=== PATIENT | male | born 1935 ===

== ENCOUNTER 2024-05-11 17:27 | Inpatient (IN) | payer MEDICARE, OTHER ==
[~2024-05-11] VITALS: Ht 165.1 cm; Wt 63.5 kg
[2024-05-11] MEDS ORDERED: DEXTROSE 50% 50 ML DISP.SYRIN ONE ×2 (17:48→23:01)
[2024-05-11 17:53] LABS: BASOPHILS % (AUTO) 0.2 % (0.0-2.0); DIFFERENTIAL COMMENT 0; EOSINOPHILS # (AUTO) 0.2 K/uL (0.0-0.7); HEMATOCRIT 44.6 % (36.7-47.1); HEMOGLOBIN 14.6 g/dL (12.5-16.3); LYMPHOCYTES # (AUTO) 0.6 K/uL (0.8-4.8); LYMPHOCYTES % (AUTO) 8.3 % (20.5-51.5); MEAN CORPUSCULAR HGB CONC 33 g/dL (32.5-36.3); MEAN CORPUSCULAR VOLUME 94.3 fL (73.0-96.2); MONOCYTES # (AUTO) 0.4 K/uL (0.1-1.30); MONOCYTES % (AUTO) 5.8 % (0.0-11.0); NEUTROPHILS # (AUTO) 6.2 K/uL (1.8-8.9); NEUTROPHILS % (AUTO) 83.7 % (38.5-71.5); PLATELET COUNT (AUTO) 142 K/uL (152-348); RED BLOOD CELL COUNT(AUTO) 4.73 MIL/uL (4.06-5.63); RED CELL DISTRIBUTION WIDTH 16.4 % (12.1-16.2); WHITE BLOOD COUNT (AUTO) 7.4 K/uL (3.6-10.2)
[2024-05-11 18:09] LABS: ALANINE AMINOTRANSFERASE 28 U/L (16-63); ALBUMIN 2.8 g/dL (3.4-5.0); ALKALINE PHOSPHATASE 72 U/L (50-136); ASPARTATE AMINOTRANSFERASE 22 U/L (15-37); BILIRUBIN,DIRECT 0.2 mg/dL (0.0-0.2); BILIRUBIN,TOTAL 0.6 mg/dL (0.2-1.0); CALCIUM 9.2 mg/dL (8.5-10.1); CARBON DIOXIDE 30 mmol/L (21-32); CHLORIDE 106 mmol/L (98-107); CREATININE 1.1 mg/dL (0.6-1.3); GLUCOSE 61 mg/dL (74-106); SODIUM SERUM 143 mmol/L (136-145); TOTAL PROTEIN, SERUM 8.7 g/dL (6.4-8.2); UREA NITROGEN, BLOOD 16 mg/dL (7-18)
[2024-05-11] MEDS ORDERED: ALBU2.5V13 IH (18:29)
[2024-05-11] MEDS ORDERED: ENOX40DI SQ (18:29)
[2024-05-11] MEDS ORDERED: NA P133E RC (18:29)
[2024-05-11] MEDS ORDERED: ATOR10TA PO (18:29)
[2024-05-11] MEDS ORDERED: MULT-225 PO (18:29)
[2024-05-11] MEDS ORDERED: ACET-73 PO (18:29)
[2024-05-11] MEDS ORDERED: DIVA-76 PO (18:29)
[2024-05-11] MEDS ORDERED: TAMS-3 PO (18:29)
[2024-05-11] MEDS ORDERED: ASCO500P18 PO (18:29)
[2024-05-11] MEDS ORDERED: BISA10SU61 RC (18:29)
[2024-05-11] MEDS ORDERED: EMPA25TA PO (18:29)
[2024-05-11] MEDS ORDERED: ACET-3117 PO (18:29)
[2024-05-11] MEDS ORDERED: IPRA0.2S48 NEB (18:29)
[2024-05-11] MEDS ORDERED: ASPI81TA31 PO (18:29)
[2024-05-11] MEDS ORDERED: SENN8.6T19 PO (18:29)
[2024-05-11] MEDS ORDERED: ACET-2030 PO (18:29)
[2024-05-11] MEDS ORDERED: ICOS1CAP PO (18:29)
[2024-05-11] MEDS ORDERED: GLIP10TA11 PO (18:29)
[2024-05-11] MEDS ORDERED: MIDO10TA PO (18:29)
[2024-05-11] MEDS: DEXTROSE 10 % IN WATER 250 ML IV ONE (18:55)
[2024-05-11] MEDS: DEXTROSE 50% 50 ML DISP.SYRIN IV ONE ×2 (18:55→23:06)
[2024-05-11 19:16] LABS: AMMONIA 17 umol/L (11-32)
[2024-05-11 19:28] LABS: LACTIC ACID 2.5 mmol/L (0.4-2.0)
[2024-05-11 19:43] LABS: NT-PRO BNP 299 pg/mL (0-125)
[2024-05-11] MEDS ORDERED: CEFTRIAXONE /D5W 50ML IVPB **ER PYXIS IV ONE (19:59)
[2024-05-11] MEDS: CEFTRIAXONE 1 G in IV DEXTROSE 5% 50 ML IV ONE (20:06)
[2024-05-11] MEDS ORDERED: ONDANSETRON 4 MG/2 ML VIAL IV PRN (23:15)
[2024-05-11] MEDS ORDERED: ALBUTEROL SULFATE 2.5 MG/ 0.5 ML NEBU IH PRN (23:15)
[2024-05-11] MEDS: IV 10% DEXTROSE 1,000 ML IV SCH (23:15)
[2024-05-11] MEDS ORDERED: ACETAMINOPHEN 325 MG TABLET PO PRN (23:15)
[2024-05-12] VITALS (7 sets, daily range): BP systolic 92–126; BP diastolic 54–75; TEMP 95.9–99; O2SAT 91–99
[2024-05-12] MEDS: DEXTROSE 50% 50 ML DISP.SYRIN IV PRN (06:18)
[2024-05-12 07:19] LABS: BASOPHILS % (AUTO) 0.1 % (0.0-2.0); EOSINOPHILS # (AUTO) 0.2 K/uL (0.0-0.7); EOSINOPHILS % (AUTO) 2.6 % (0.0-7.0); HEMATOCRIT 40.8 % (36.7-47.1); HEMOGLOBIN 13.8 g/dL (12.5-16.3); LYMPHOCYTES % (AUTO) 14.5 % (20.5-51.5); MEAN CORPUSCULAR HGB CONC 34 g/dL (32.5-36.3); MEAN CORPUSCULAR VOLUME 94.8 fL (73.0-96.2); MONOCYTES # (AUTO) 0.6 K/uL (0.1-1.30); MONOCYTES % (AUTO) 8.5 % (0.0-11.0); NEUTROPHILS # (AUTO) 5.2 K/uL (1.8-8.9); NEUTROPHILS % (AUTO) 74.3 % (38.5-71.5); PLATELET COUNT (AUTO) 148 K/uL (152-348); RED CELL DISTRIBUTION WIDTH 16.4 % (12.1-16.2); WHITE BLOOD COUNT (AUTO) 6.9 K/uL (3.6-10.2)
[2024-05-12 07:42] LABS: CALCIUM 8.8 mg/dL (8.5-10.1); CARBON DIOXIDE 30 mmol/L (21-32); CHLORIDE 104 mmol/L (98-107); CHOLESTEROL 105 mg/dL (<200); GLUCOSE 63 mg/dL (74-106); HDL CHOLESTEROL 55 mg/dL (40-60); MAGNESIUM 1.9 mg/dL (1.8-2.4); PHOSPHOROUS 3.7 mg/dL (2.5-4.9); POTASSIUM 3.6 mmol/L (3.5-5.1); SODIUM SERUM 140 mmol/L (136-145); TRIGLYCERIDES 31 MG/DL (30-150); UREA NITROGEN, BLOOD 12 mg/dL (7-18)
[2024-05-12 07:48] LABS: DIFFERENTIAL COMMENT 1
[2024-05-12] MEDS ORDERED: LATA2.5D2 LEFTEYE (08:47)
[2024-05-12] MEDS ORDERED: ASPIRIN 81 MG TAB.CHEW PO SCH (09:00)
[2024-05-12] MEDS ORDERED: ATORVASTATIN 10 MG TABLET PO SCH (09:00)
[2024-05-12] MEDS: DIVALPROEX 250 MG TABLET.DR PO SCH (09:24)
[2024-05-12] MEDS: BLOOD SUGAR DIAGNOSTIC 1 EACH STRIP VI SCH (09:24)
[2024-05-12] MEDS: ASPIRIN EC 81 MG TABLET.DR PO SCH (09:24)
[2024-05-12] MEDS: ENOXAPARIN SODIUM 40 MG/0.4 ML DISP.SYRIN SQ SCH (09:46)
[2024-05-12] MEDS ORDERED: GLUCAGON,HUMAN RECOMBINANT 1 MG VIAL IM ONE ×2 (11:45→12:00)
[2024-05-12] MEDS: GLUCAGON,HUMAN RECOMBINANT 1 MG VIAL IM ONE (12:04)
[2024-05-12] MEDS: MIDODRINE HCL 5 MG TABLET PO SCH (14:00)
[2024-05-12] MEDS: HYDROCORTISONE SOD SUCCINATE 100 MG/2 ML VIAL IV SCH (14:28)
[2024-05-12] MEDS: FUROSEMIDE 40 MG/4 ML VIAL IV ONE (14:47)
[2024-05-12 14:56] LABS: ABG BASE EXCESS 1.3 mmol/L (-2.0-3.0); ABG HCO3 25.3 mmol/L (21.0-28.0); ABG PH 7.441 (7.350-7.450); ABG PO2 113.7 mmHg (83.0-108.0); ABG SITE RIGHT RADIAL; ABG TOTAL HEMOGLOBIN 15.1 G/dL (13.5-17.5); AaDO2 98.3 mmHg; COHb 0.5 % (0.5-1.5); MetHb 0.6 % (0.0-1.5); O2Hb 97.4 % (94.0-98.0)
[2024-05-12] MEDS: LATANOPROST OPHT DROP 2.5 ML BOTTLE LEFTEYE SCH (21:00)
[2024-05-12] MEDS: TAMSULOSIN HCL 0.4 MG CAP.SR.24H PO SCH (21:11)
[2024-05-12] MEDS: ATORVASTATIN 10 MG TABLET PO SCH (21:12)
[2024-05-13] VITALS (10 sets, daily range): BP systolic 101–139; BP diastolic 49–75; TEMP 97.1–98.2; O2SAT 91–99
[2024-05-13] MEDS: INSULIN REGULAR, HUMAN 1000 UNIT/10 ML VIAL SQ PRN (08:17)
[2024-05-13] MEDS: HYDROCORTISONE SOD SUCCINATE 100 MG/2 ML VIAL IV SCH (16:37)
[2024-05-14 00:22] VITALS: BP 120/72; TEMP 97.3; O2SAT 96
[2024-05-14 04:32] VITALS: BP 104/64; TEMP 97.6; O2SAT 95
[2024-05-14 06:54] LABS: BASOPHILS % (AUTO) 0.2 % (0.0-2.0); EOSINOPHILS % (AUTO) 0.4 % (0.0-7.0); HEMATOCRIT 38.6 % (36.7-47.1); HEMOGLOBIN 12.9 g/dL (12.5-16.3); LYMPHOCYTES % (AUTO) 21.6 % (20.5-51.5); MEAN CORPUSCULAR HEMOGLOBIN 31.3 uug (23.8-33.4); MEAN CORPUSCULAR HGB CONC 33 g/dL (32.5-36.3); MEAN CORPUSCULAR VOLUME 93.8 fL (73.0-96.2); MONOCYTES # (AUTO) 0.7 K/uL (0.1-1.30); MONOCYTES % (AUTO) 7.7 % (0.0-11.0); NEUTROPHILS # (AUTO) 6.4 K/uL (1.8-8.9); NEUTROPHILS % (AUTO) 70.1 % (38.5-71.5); PLATELET COUNT (AUTO) 161 K/uL (152-348); RED BLOOD CELL COUNT(AUTO) 4.12 MIL/uL (4.06-5.63); RED CELL DISTRIBUTION WIDTH 15.9 % (12.1-16.2); WHITE BLOOD COUNT (AUTO) 9.1 K/uL (3.6-10.2)
[2024-05-14 07:03] LABS: CALCIUM 8.8 mg/dL (8.5-10.1); CARBON DIOXIDE 32 mmol/L (21-32); CHLORIDE 106 mmol/L (98-107); CREATININE 1.2 mg/dL (0.6-1.3); GLUCOSE 128 mg/dL (74-106); MAGNESIUM 2.5 mg/dL (1.8-2.4); PHOSPHOROUS 3.2 mg/dL (2.5-4.9); POTASSIUM 4.3 mmol/L (3.5-5.1); SODIUM SERUM 142 mmol/L (136-145); UREA NITROGEN, BLOOD 20 mg/dL (7-18)
[2024-05-14 07:05] LABS: DIFFERENTIAL COMMENT 1
[2024-05-14 08:00] VITALS: BP 104/49; TEMP 97.6; O2SAT 98
[2024-05-14 11:17] VITALS: BP 110/55; TEMP 98.2; O2SAT 96
[2024-05-14] MEDS ORDERED: HYDR-4322 PO (11:20)
[2024-05-14 15:18] VITALS: BP 112/63; TEMP 97.6; O2SAT 100
[2024-05-14] MEDS: REMEDY ESSENTIAL ZINC PASTE 113 GM TP PRN (16:59)
[2024-05-14 20:00] VITALS: BP 121/84; TEMP 97.7; O2SAT 98
[2024-05-15 00:14] VITALS: BP 98/54; TEMP 97.6; O2SAT 97
[2024-05-15 06:01] VITALS: BP 105/64; TEMP 97.6; O2SAT 95
[2024-05-15 06:49] LABS: BASOPHILS # (AUTO) 0.1 K/UL (0.0-0.2); BASOPHILS % (AUTO) 0.9 % (0.0-2.0); EOSINOPHILS % (AUTO) 0.1 % (0.0-7.0); HEMATOCRIT 40.3 % (36.7-47.1); HEMOGLOBIN 13.6 g/dL (12.5-16.3); LYMPHOCYTES # (AUTO) 1.5 K/uL (0.8-4.8); LYMPHOCYTES % (AUTO) 18.2 % (20.5-51.5); MEAN CORPUSCULAR HEMOGLOBIN 31.7 uug (23.8-33.4); MEAN CORPUSCULAR HGB CONC 34 g/dL (32.5-36.3); MONOCYTES # (AUTO) 0.3 K/uL (0.1-1.30); MONOCYTES % (AUTO) 4.4 % (0.0-11.0); NEUTROPHILS # (AUTO) 6.1 K/uL (1.8-8.9); NEUTROPHILS % (AUTO) 76.4 % (38.5-71.5); PLATELET COUNT (AUTO) 163 K/uL (152-348); RED BLOOD CELL COUNT(AUTO) 4.29 MIL/uL (4.06-5.63); RED CELL DISTRIBUTION WIDTH 16.1 % (12.1-16.2)
[2024-05-15 07:08] LABS: CALCIUM 9.4 mg/dL (8.5-10.1); CARBON DIOXIDE 33 mmol/L (21-32); CHLORIDE 109 mmol/L (98-107); CREATININE 1.1 mg/dL (0.6-1.3); GLUCOSE 104 mg/dL (74-106); MAGNESIUM 2.3 mg/dL (1.8-2.4); PHOSPHOROUS 3.6 mg/dL (2.5-4.9); SODIUM SERUM 145 mmol/L (136-145); UREA NITROGEN, BLOOD 25 mg/dL (7-18)
[2024-05-15 07:16] LABS: DIFFERENTIAL COMMENT 1
[2024-05-15 07:40] VITALS: BP 118/70; TEMP 97.7; O2SAT 98
[2024-05-15 11:42] VITALS: BP 102/64; TEMP 97.6; O2SAT 96
[2024-05-15 13:16] VITALS: BP 105/61
== END 2024-05-15 15:40 | DRG 637 ==
LOC: ER 17:27 → TELE3 21:47
PROVIDERS: ADMIT Nurse Practitioner Acute Care; ATTEND Nurse Practitioner Acute Care
PROC: 05HC33Z Insertion of Infusion Device into Left Basilic Vein, Percutaneous Approach (ICD-10-PCS; principal; 2024-05-12)
DX: E11.649 Type 2 diabetes mellitus with hypoglycemia without coma (principal); G93.41 Metabolic encephalopathy; I87.313 Chronic venous hypertension (idiopathic) with ulcer of bilateral lower extremity; L97.821 Non-pressure chronic ulcer of other part of left lower leg limited to breakdown of skin; L97.811 Non-pressure chronic ulcer of other part of right lower leg limited to breakdown of skin; L97.518 Non-pressure chronic ulcer of other part of right foot with other specified severity; J81.1 Chronic pulmonary edema; D84.9 Immunodeficiency, unspecified; I67.89 Other cerebrovascular disease; J98.4 Other disorders of lung; E11.621 Type 2 diabetes mellitus with foot ulcer; Z79.84 Long term (current) use of oral hypoglycemic drugs; Z79.82 Long term (current) use of aspirin; Z79.899 Other long term (current) drug therapy; E78.5 Hyperlipidemia, unspecified; R26.2 Difficulty in walking, not elsewhere classified; F03.90 Unspecified dementia, unspecified severity, without behavioral disturbance, psychotic disturbance, mood disturbance, and anxiety; I25.10 Atherosclerotic heart disease of native coronary artery without angina pectoris; I48.0 Paroxysmal atrial fibrillation; R13.10 Dysphagia, unspecified; I11.9 Hypertensive heart disease without heart failure; N40.0 Benign prostatic hyperplasia without lower urinary tract symptoms; M62.59 Muscle wasting and atrophy, not elsewhere classified, multiple sites
CPT/HCPCS: 36415; 36600; 70450; 71045; 82533; 82803; 83605; 83735; 84100; 84484; 85025; 87040; A4606; A4663; A6213; G0378; J0696; J1610; J1650; J1720; J1940; J3490